=== PATIENT | female | born 1945 | race Caucasian/White ===

== ENCOUNTER 2019-12-24 19:41 | Inpatient (IN) | payer MEDICARE, MEDICAID ==
[~2019-12-24] VITALS: Ht 157.5 cm; Wt 94.5 kg
[2019-12-24] MEDS ORDERED: ONDANSETRON HCL 4MG/2ML INJ IV STA (20:00)
[2019-12-24] MEDS ORDERED: SODIUM CHLORIDE 0.9% 500 ML IV ONE (20:00)
[2019-12-24 20:35] LABS: BASOPHILS % 0.5 % (0.0-2.0); EOSINOPHILS % 2.7 % (0.0-5.0); HEMATOCRIT. 35.7 % (36.0-48.0); HEMOGLOBIN. 11.6 g/dL (12.0-16.0); LYMPHOCYTES % 14.9 % (20.0-50.0); MEAN CORPUSCULAR HEMOGLOBIN 28.8 pg (28.0-32.0); MEAN CORPUSCULAR VOLUME 88.6 fL (81.0-99.0); MEAN PLATELET VOLUME 9.3 fl (7.4-10.4); MONOCYTES % 6.1 % (2.0-8.0); NEUTROPHILS % 75.8 % (40.0-76.0); PLATELET 197 x1000/uL (130-400); RED BLOOD CELL COUNT 4.03 mill/uL (4.2-5.4); RED CELL DISTRIBUTION WIDTH 15.2 % (11.6-14.6)
[2019-12-24 20:39] LABS: CHLORIDE 99 mEq/L (98-107)
[2019-12-24 20:44] LABS: ETHANOL BLOOD < 10 mg/dL
[2019-12-24 21:30] LABS: CLARITY URINE CLEAR (CLEAR); COLOR URINE YELLOW (YELLOW); KETONES URINE NEGATIVE (NEGATIVE); LEUKOCYTE ESTERASE URINE NEGATIVE (NEGATIVE); NITRITE URINE NEGATIVE (NEGATIVE); OCCULT BLOOD URINE NEGATIVE (NEGATIVE); PROTEIN URINE TRACE (NEGATIVE); SPECIFIC GRAVITY URINE 1.017 (1.005-1.030); UROBILINOGEN URINE 0.2 E.U./dL (0.2-1.0)
[2019-12-24 21:40] LABS: *AMPHETAMINES SCREEN URINE NEGATIVE (NEGATIVE); *BARBITURATES SCREEN URINE NEGATIVE (NEGATIVE); *BENZODIAZEPINES SCREEN URINE NEGATIVE (NEGATIVE); *COCAINE SCREEN URINE NEGATIVE (NEGATIVE); METHADONE URINE SCREEN NEGATIVE (NEGATIVE)
[2019-12-24 21:41] LABS: CANNABINOID URINE SCREEN NEGATIVE (NEGATIVE); OPIATES URINE SCREEN NEGATIVE (NEGATIVE); PHENCYCLIDINE URINE SCREEN NEGATIVE (NEGATIVE)
[2019-12-25 04:00] VITALS: BP 130/61
[2019-12-25] MEDS ORDERED: LOSA100T32 PO (04:58)
[2019-12-25] MEDS ORDERED: HYDR-4133 PO (04:58)
[2019-12-25] MEDS ORDERED: AMLO10TA80 PO (04:58)
[2019-12-25] MEDS ORDERED: AZOPT EACHEYE (04:58)
[2019-12-25] MEDS ORDERED: ASPI-1497 PO (04:58)
[2019-12-25] MEDS ORDERED: GLIM4TAB36 PO (04:58)
[2019-12-25] MEDS ORDERED: TIMO5DRO32 EACHEYE (04:58)
[2019-12-25] MEDS ORDERED: SIMV-43 PO (04:58)
[2019-12-25] MEDS ORDERED: SULF1TAB48 MT (04:58)
[2019-12-25] MEDS ORDERED: BRIM15DR8 EACHEYE (04:58)
[2019-12-25 04:59] VITALS: BP 130/61
[2019-12-25] MEDS ORDERED: INSU100I28 SQ (05:20)
[2019-12-25] MEDS ORDERED: INSLIS SUBCUT ×2 (05:20)
[2019-12-25] MEDS ORDERED: DEXTROSE 50% WATER 50ML SYRINGE IV PRN (06:30)
[2019-12-25] MEDS: INSULIN LISPRO 100 UNITS/ML SUBCUT SCH ×4 (06:38→22:06)
[2019-12-25] MEDS: BLOOD SUGAR DIAGNOSTIC STRIP TEST SCH ×4 (06:38→21:59)
[2019-12-25] MEDS: HYDRALAZINE HCL 10MG TABLET PO SCH ×3 (06:43→21:48)
[2019-12-25 08:00] VITALS: BP 127/52
[2019-12-25] MEDS: GLIMEPIRIDE 2MG TABLET PO SCH (08:52)
[2019-12-25] MEDS: SULFAMETHOXAZOLE/TRIMETHOPRIM 800/160MG TABLET PO SCH (08:52)
[2019-12-25] MEDS: ASPIRIN 81MG EC TABLET PO SCH (08:52)
[2019-12-25] MEDS: LOSARTAN POTASSIUM 100 MG TABLET PO SCH (08:53)
[2019-12-25] MEDS: AMLODIPINE 10MG TABLET PO SCH (08:53)
[2019-12-25] MEDS: BRIMONIDINE 0.2% OPHTH DROPS 5ML BOTHEYE SCH ×2 (08:54→17:52)
[2019-12-25] MEDS: DORZOLAMIDE 2% OPHTH 10 ML BOTTLE BOTHEYE SCH ×2 (08:54→17:52)
[2019-12-25] MEDS: TIMOLOL MALEATE 0.5% OPHTH DROPS 5ML EACHEYE SCH ×2 (08:54→17:52)
[2019-12-25] MEDS ORDERED: GLIMEPIRIDE 4 MG PO SCH (09:00)
[2019-12-25] MEDS ORDERED: MEDICATION NOT ON FORMULARY EA (Timolol Maleate 1 DROP) EACHEYE SCH (09:00)
[2019-12-25] MEDS ORDERED: ENOXAPARIN 30MG/0.3ML SYR SUBCUT SCH (09:00)
[2019-12-25] MEDS ORDERED: BRIMONIDINE 0.2% OPHTH DROPS 5ML EACHEYE SCH (09:00)
[2019-12-25] MEDS ORDERED: MEDICATION NOT ON FORMULARY EA (Brinzolamide (Azopt) 1 DROP) EACHEYE SCH (09:00)
[2019-12-25 09:32] LABS: BASOPHILS % 0.4 % (0.0-2.0); EOSINOPHILS % 3.2 % (0.0-5.0); HEMATOCRIT. 36.1 % (36.0-48.0); HEMOGLOBIN. 11.9 g/dL (12.0-16.0); MEAN CORPUSCULAR VOLUME 88.2 fL (81.0-99.0); MEAN PLATELET VOLUME 9.3 fl (7.4-10.4); NEUTROPHILS % 71.4 % (40.0-76.0); PLATELET 205 x1000/uL (130-400); RED CELL DISTRIBUTION WIDTH 14.9 % (11.6-14.6)
[2019-12-25 12:00] VITALS: BP_SYST 113; BP_SYST 120; BP_DIAS 44; BP_DIAS 58
[2019-12-25] MEDS: SODIUM CHLORIDE 0.45% 1,000 ML IV SCH (12:56)
[2019-12-25 16:00] VITALS: BP_SYST 101; BP_SYST 127; BP_DIAS 46; BP_DIAS 52
[2019-12-25 20:00] VITALS: BP_SYST 109; BP_SYST 113; BP_SYST 116; BP_DIAS 47; BP_DIAS 57; BP_DIAS 61
[2019-12-25] MEDS: ATORVASTATIN CALCIUM 20MG TABLET PO SCH (21:48)
[2019-12-26] VITALS: BP 110/37
[2019-12-26] MEDS: SODIUM CHLORIDE 0.45% 1,000 ML IV SCH ×2 (02:40→17:04)
[2019-12-26 04:00] VITALS: BP 113/44
[2019-12-26] MEDS: HYDRALAZINE HCL 10MG TABLET PO SCH ×3 (06:41→21:56)
[2019-12-26] MEDS: BLOOD SUGAR DIAGNOSTIC STRIP TEST SCH ×4 (06:50→21:56)
[2019-12-26] MEDS: INSULIN LISPRO 100 UNITS/ML SUBCUT SCH ×4 (07:08→21:56)
[2019-12-26 07:23] LABS: BASOPHILS % 0.6 % (0.0-2.0); EOSINOPHILS % 6.4 % (0.0-5.0); HEMATOCRIT. 37.4 % (36.0-48.0); HEMOGLOBIN. 12.5 g/dL (12.0-16.0); LYMPHOCYTES % 28.4 % (20.0-50.0); MEAN CORPUSCULAR HEMOGLOBIN 29.7 pg (28.0-32.0); MEAN CORPUSCULAR VOLUME 88.7 fL (81.0-99.0); MEAN PLATELET VOLUME 9.3 fl (7.4-10.4); MONOCYTES % 7.7 % (2.0-8.0); NEUTROPHILS % 56.9 % (40.0-76.0); PLATELET 192 x1000/uL (130-400); RED BLOOD CELL COUNT 4.22 mill/uL (4.2-5.4); RED CELL DISTRIBUTION WIDTH 15.1 % (11.6-14.6)
[2019-12-26 08:00] VITALS: BP 132/57
[2019-12-26] MEDS: LOSARTAN POTASSIUM 100 MG TABLET PO SCH (09:21)
[2019-12-26] MEDS: SULFAMETHOXAZOLE/TRIMETHOPRIM 800/160MG TABLET PO SCH (09:21)
[2019-12-26] MEDS: GLIMEPIRIDE 2MG TABLET PO SCH (09:22)
[2019-12-26] MEDS: ASPIRIN 81MG EC TABLET PO SCH (09:22)
[2019-12-26] MEDS: AMLODIPINE 10MG TABLET PO SCH (09:22)
[2019-12-26] MEDS: BRIMONIDINE 0.2% OPHTH DROPS 5ML BOTHEYE SCH ×2 (09:23→17:02)
[2019-12-26] MEDS: TIMOLOL MALEATE 0.5% OPHTH DROPS 5ML EACHEYE SCH ×2 (09:23→17:02)
[2019-12-26] MEDS: DORZOLAMIDE 2% OPHTH 10 ML BOTTLE BOTHEYE SCH ×2 (09:23→17:02)
[2019-12-26] MEDS: ENOXAPARIN 40MG/0.4ML SYR SUBCUT SCH (09:23)
[2019-12-26 12:08] VITALS: BP_SYST 105; BP_SYST 98; BP_DIAS 48; BP_DIAS 53
[2019-12-26 16:00] VITALS: BP 106/78
[2019-12-26 20:00] VITALS: BP_SYST 103; BP_SYST 125; BP_SYST 128; BP_DIAS 47; BP_DIAS 63; BP_DIAS 64
[2019-12-26] MEDS: ATORVASTATIN CALCIUM 20MG TABLET PO SCH (21:56)
[2019-12-27] VITALS: BP 103/45
[2019-12-27 04:00] VITALS: BP_SYST 109; BP_SYST 111; BP_DIAS 56
[2019-12-27] MEDS: SODIUM CHLORIDE 0.45% 1,000 ML IV SCH ×2 (04:14→18:05)
[2019-12-27] MEDS: HYDRALAZINE HCL 10MG TABLET PO SCH ×2 (05:05→13:11)
[2019-12-27] MEDS: INSULIN LISPRO 100 UNITS/ML SUBCUT SCH ×3 (07:15→17:37)
[2019-12-27 07:31] LABS: BASOPHILS % 0.6 % (0.0-2.0); EOSINOPHILS % 4.8 % (0.0-5.0); HEMOGLOBIN. 11.8 g/dL (12.0-16.0); LYMPHOCYTES % 25.1 % (20.0-50.0); MEAN CORPUSCULAR HEMOGLOBIN 29.7 pg (28.0-32.0); MEAN CORPUSCULAR VOLUME 88.3 fL (81.0-99.0); MEAN PLATELET VOLUME 9.5 fl (7.4-10.4); MONOCYTES % 8.7 % (2.0-8.0); NEUTROPHILS % 60.8 % (40.0-76.0); PLATELET 208 x1000/uL (130-400); RED BLOOD CELL COUNT 3.96 mill/uL (4.2-5.4); RED CELL DISTRIBUTION WIDTH 14.9 % (11.6-14.6)
[2019-12-27] MEDS: BLOOD SUGAR DIAGNOSTIC STRIP TEST SCH ×3 (07:44→17:02)
[2019-12-27 08:11] VITALS: BP_SYST 132; BP_SYST 95; BP_SYST 97; BP_DIAS 62; BP_DIAS 73; BP_DIAS 77
[2019-12-27] MEDS: SULFAMETHOXAZOLE/TRIMETHOPRIM 800/160MG TABLET PO SCH (08:38)
[2019-12-27] MEDS: ENOXAPARIN 40MG/0.4ML SYR SUBCUT SCH (08:38)
[2019-12-27] MEDS: LOSARTAN POTASSIUM 100 MG TABLET PO SCH (08:39)
[2019-12-27] MEDS: ASPIRIN 81MG EC TABLET PO SCH (08:39)
[2019-12-27] MEDS: GLIMEPIRIDE 2MG TABLET PO SCH (08:39)
[2019-12-27] MEDS: BRIMONIDINE 0.2% OPHTH DROPS 5ML BOTHEYE SCH ×2 (08:40→17:37)
[2019-12-27] MEDS: TIMOLOL MALEATE 0.5% OPHTH DROPS 5ML EACHEYE SCH ×2 (08:40→17:37)
[2019-12-27] MEDS: DORZOLAMIDE 2% OPHTH 10 ML BOTTLE BOTHEYE SCH ×2 (08:40→17:37)
[2019-12-27] MEDS: AMLODIPINE 10MG TABLET PO SCH (08:40)
[2019-12-27 12:00] VITALS: BP 119/63
[2019-12-27 16:00] VITALS: BP 117/42
[2019-12-27 17:13] VITALS: BP 117/42
== END 2019-12-27 18:25 | disposition home or self-care (01) | DRG 73 ==
LOC: ER 19:41 → 5WST 23:32 → ENRESERV 12-25 03:30
PROVIDERS: ADMIT Internal Medicine; ATTEND Internal Medicine
DX: G90.8 Other disorders of autonomic nervous system (principal); N17.0 Acute kidney failure with tubular necrosis; E87.1 Hypo-osmolality and hyponatremia; E44.1 Mild protein-calorie malnutrition; I12.9 Hypertensive chronic kidney disease with stage 1 through stage 4 chronic kidney disease, or unspecified chronic kidney disease; E11.22 Type 2 diabetes mellitus with diabetic chronic kidney disease; E11.649 Type 2 diabetes mellitus with hypoglycemia without coma; E66.01 Morbid (severe) obesity due to excess calories; E78.5 Hyperlipidemia, unspecified; N18.9 Chronic kidney disease, unspecified; Z68.37 Body mass index [BMI] 37.0-37.9, adult; Z79.82 Long term (current) use of aspirin; Z79.4 Long term (current) use of insulin; Z79.899 Other long term (current) drug therapy; Z68.38 Body mass index [BMI] 38.0-38.9, adult
CPT/HCPCS: 36415; 70551; 71045; 80048; 80053; 80061; 80305; 80320; 81003; 82962; 83036; 83880; 84145; 84443; 84484; 85025; 93005; 93306; 93880; 97162; 99285; J1650; J1815; J2405; J7040; G0480

== ENCOUNTER 2023-01-02 12:05 | Inpatient (IN) | payer MEDICARE, MEDICAID ==
[~2023-01-02] VITALS: Ht 152.4 cm; Wt 61.9 kg
[~2023-01-02 12:05] MED LIST: AMLO10TA80 PO; ASPI-1497 PO; AZOPT EACHEYE; BRIM15DR8 EACHEYE; GLIM4TAB36 PO; HYDR-4133 PO; INSLIS SUBCUT; INSU100I28 SQ; LOSA100T33 PO; SIMV-43 PO; SULF1TAB48 MT; TIMO5DRO32 EACHEYE
[2023-01-02 12:07] VITALS: O2SAT 99
[2023-01-02] MEDS ORDERED: PIPERACILLIN/TAZ 3.375G PREMIX 50 ML IV ONE (12:15)
[2023-01-02] MEDS ORDERED: VANCOMYCIN 1G PREMIX 200 ML IV ONE (12:15)
[2023-01-02 12:25] LABS: HEMATOCRIT. 38.4 % (36.0-48.0); HEMOGLOBIN. 12.1 g/dL (12.0-16.0); MEAN CORPUSCULAR HEMOGLOBIN 27.8 pg (28.0-32.0); MEAN CORPUSCULAR VOLUME 88.2 fL (81.0-99.0); MEAN PLATELET VOLUME 9.8 fl (7.4-10.4); PLATELET 287 x1000/uL (130-400); RED BLOOD CELL COUNT 4.35 mill/uL (4.2-5.4)
[2023-01-02 12:34] LABS: CHLORIDE 95 mEq/L (98-107)
[2023-01-02 12:37] LABS: INR 1.2
[2023-01-02] MEDS ORDERED: SODIUM CHLORIDE 0.9% 1,000 ML IV ONE (13:15)
[2023-01-02 13:25] LABS: PLATELET ESTIMATE NORMAL
[2023-01-02] MEDS ORDERED: CLONIDINE 0.1MG TABLET PO PRN (17:30)
[2023-01-02] MEDS ORDERED: GUAIFENESIN 200MG/10ML SUGAR FREE UDC PO PRN (17:30)
[2023-01-02] MEDS ORDERED: PIPERACILLIN/TAZ 3.375G PREMIX 50 ML IV SCH (17:30)
[2023-01-02] MEDS ORDERED: ACETAMINOPHEN 325MG TABLET PO PRN ×2 (17:30)
[2023-01-02] MEDS ORDERED: LORAZEPAM 0.5MG TABLET PO PRN (17:30)
[2023-01-02] MEDS ORDERED: IPRATROPIUM/ALBUTEROL 0.5-3(2.5)MG/3ML NEB HHN PRN (17:30)
[2023-01-02] MEDS ORDERED: ONDANSETRON HCL 4MG/2ML INJ IV PRN (17:30)
[2023-01-02] MEDS ORDERED: DEXTROSE 50% WATER 50ML SYRINGE IV PRN (17:45)
[2023-01-02] MEDS: ENOXAPARIN 30MG/0.3ML SYR SUBCUT SCH (18:00)
[2023-01-02 18:26] LABS: T4 FREE 1.01 ng/dL (0.76-1.46)
[2023-01-02] MEDS: INSULIN LISPRO 100 UNITS/ML SUBCUT SCH ×2 (19:17→21:09)
[2023-01-02] MEDS: BLOOD SUGAR DIAGNOSTIC STRIP TEST SCH (20:54)
[2023-01-02 22:00] VITALS: BP 115/51; PULSE 86; RESP 20; TEMP 96.3
[2023-01-03] VITALS: BP 119/68; PULSE 89; RESP 20; TEMP 98.8
[2023-01-03 00:29] LABS: CREATINE KINASE MB FRACTION 13.8 ng/mL (0.5-3.6)
[2023-01-03] MEDS: PIPERACILLIN/TAZOBACTAM 3.375 G in DEXTROSE 5% WATER 50 ML IV SCH ×4 (00:43→21:50)
[2023-01-03] MEDS: FUROSEMIDE 40MG TABLET PO SCH ×5 (00:44→21:48)
[2023-01-03] MEDS ORDERED: FEBU40TA PO (02:27)
[2023-01-03] MEDS ORDERED: APIX2.5T PO (02:27)
[2023-01-03] MEDS ORDERED: LINA5TAB PO (02:27)
[2023-01-03] MEDS ORDERED: NETA2.5D RIGHTEYE (02:27)
[2023-01-03] MEDS ORDERED: POTA10CA43 PO (02:27)
[2023-01-03] MEDS ORDERED: DORZ10DR8 EACHEYE (02:27)
[2023-01-03] MEDS ORDERED: FURO40TA5 PO (02:27)
[2023-01-03] MEDS ORDERED: BIMA2.5D4 EACHEYE (02:27)
[2023-01-03] MEDS ORDERED: MEMA10TA55 PO (02:27)
[2023-01-03] MEDS ORDERED: BRIM15DR2 EACHEYE (02:27)
[2023-01-03] MEDS ORDERED: HYDR10TA34 PO (02:27)
[2023-01-03] MEDS ORDERED: FAMO20TA8 PO (02:27)
[2023-01-03 04:00] VITALS: BP 98/52; PULSE 84; RESP 22; TEMP 98.4
[2023-01-03] MEDS: BLOOD SUGAR DIAGNOSTIC STRIP TEST SCH ×4 (06:22→21:00)
[2023-01-03] MEDS: INSULIN LISPRO 100 UNITS/ML SUBCUT SCH ×4 (06:22→21:00)
[2023-01-03 06:40] LABS: HEMATOCRIT 35.3 % (36.0-48.0); HEMOGLOBIN 11.5 g/dL (12.0-16.0); MEAN CORPUSCULAR HEMOGLOBIN 28.5 pg (28.0-32.0); MEAN CORPUSCULAR VOLUME 87.6 fL (81.0-99.0); PLATELET 262 x1000/uL (130-400); RED BLOOD CELL COUNT 4.03 mill/uL (4.2-5.4); RED CELL DISTRIBUTION WIDTH 17.4 % (11.6-14.6)
[2023-01-03 06:51] LABS: CHLORIDE 98 mEq/L (98-107)
[2023-01-03 07:13] LABS: CREATINE KINASE 26 IU/L (26-192); CREATINE KINASE MB FRACTION 10.5 ng/mL (0.5-3.6); HAPTOGLOBIN 106 mg/dL (30-200); PHOSPHORUS 5.5 mg/dL (2.5-4.9)
[2023-01-03 08:00] VITALS: BP 103/54; PULSE 87; RESP 18; TEMP 98
[2023-01-03] MEDS ORDERED: FAMOTIDINE 20MG/2ML VIAL IV SCH (09:00)
[2023-01-03] MEDS: METOLAZONE 2.5MG TABLET PO SCH ×3 (09:00→15:28)
[2023-01-03] MEDS ORDERED: LIDOCAINE HCL 1% 10 MG/ML 10ML VIAL ONE (11:44)
[2023-01-03] MEDS ORDERED: SODIUM BICARBONATE 4% (2.4MEQ) 5ML VIAL IV ONE (11:44)
[2023-01-03 12:00] VITALS: BP 97/55; PULSE 84; RESP 18; TEMP 97.8
[2023-01-03 15:26] VITALS: BP 117/68; PULSE 90; RESP 18; TEMP 98.1
[2023-01-03] MEDS: ENOXAPARIN 30MG/0.3ML SYR SUBCUT SCH (17:07)
[2023-01-03 20:00] VITALS: BP 89/41; PULSE 92; RESP 18; TEMP 97.9
[2023-01-04] VITALS: BP 84/44; PULSE 84; RESP 18; TEMP 98.4
[2023-01-04 04:00] VITALS: BP 114/67; PULSE 92; RESP 18; TEMP 97.5
[2023-01-04] MEDS ORDERED: DIPHENHYDRAMINE 50MG/ML VIAL IV NR (05:30)
[2023-01-04] MEDS: INSULIN LISPRO 100 UNITS/ML SUBCUT SCH ×3 (06:52→16:58)
[2023-01-04] MEDS: BLOOD SUGAR DIAGNOSTIC STRIP TEST SCH ×3 (06:57→16:40)
[2023-01-04 07:39] LABS: HEMATOCRIT 33.5 % (36.0-48.0); HEMOGLOBIN 10.7 g/dL (12.0-16.0); MEAN CORPUSCULAR HEMOGLOBIN 28.4 pg (28.0-32.0); MEAN CORPUSCULAR VOLUME 88.6 fL (81.0-99.0); RED BLOOD CELL COUNT 3.79 mill/uL (4.2-5.4); RED CELL DISTRIBUTION WIDTH 17.4 % (11.6-14.6)
[2023-01-04 08:00] VITALS: BP 102/49; PULSE 78; RESP 17; TEMP 97.8
[2023-01-04 08:05] LABS: PHOSPHORUS 5.8 mg/dL (2.5-4.9)
[2023-01-04] MEDS: METOLAZONE 2.5MG TABLET PO SCH (08:40)
[2023-01-04] MEDS: PIPERACILLIN/TAZOBACTAM 3.375 G in DEXTROSE 5% WATER 50 ML IV SCH (08:40)
[2023-01-04] MEDS ORDERED: FUROSEMIDE 40MG TABLET PO SCH (09:00)
[2023-01-04 12:00] VITALS: BP 98/40; PULSE 91; RESP 19; TEMP 98.7
[2023-01-04] MEDS ORDERED: VANCOMYCIN 750MG PREMIX 150 ML IV SCH (12:00)
[2023-01-04] MEDS ORDERED: LEVO250T74 MT (15:01)
[2023-01-04 15:59] LABS: CLARITY URINE CLEAR (CLEAR); COLOR URINE YELLOW (YELLOW); KETONES URINE NEGATIVE (NEGATIVE); LEUKOCYTE ESTERASE URINE 2+ (NEGATIVE); NITRITE URINE NEGATIVE (NEGATIVE); OCCULT BLOOD URINE NEGATIVE (NEGATIVE); PH URINE 5.5 (4.5-8.0); PROTEIN URINE NEGATIVE (NEGATIVE); SPECIFIC GRAVITY URINE 1.011 (1.005-1.030); UROBILINOGEN URINE 0.2 E.U./dL (0.2-1.0)
[2023-01-04 16:00] VITALS: BP 101/50; PULSE 71; RESP 19; TEMP 97.6
[2023-01-04 16:08] VITALS: BP 98/40; PULSE 91; TEMP 98.1
[2023-01-04 16:10] LABS: SODIUM URINE RANDOM 42 mEq/L
[2023-01-07 04:07] LABS: MICROALBUMIN RANDOM URINE 21.8 ug/mL (Not Estab.)
== END 2023-01-04 17:18 | disposition home health service (06) | DRG 871 ==
LOC: ER 12:05 → 8WST 14:00 → EDBEDREQ 14:03
PROVIDERS: ADMIT Hospitalist; ATTEND Hospitalist
PROC: 0W9G3ZZ Drainage of Peritoneal Cavity, Percutaneous Approach (ICD-10-PCS; principal; 2023-01-03)
DX: A41.9 Sepsis, unspecified organism (principal); E43 Unspecified severe protein-calorie malnutrition; G93.41 Metabolic encephalopathy; K76.7 Hepatorenal syndrome; I50.33 Acute on chronic diastolic (congestive) heart failure; I13.0 Hypertensive heart and chronic kidney disease with heart failure and stage 1 through stage 4 chronic kidney disease, or unspecified chronic kidney disease; N17.9 Acute kidney failure, unspecified; R18.8 Other ascites; D47.2 Monoclonal gammopathy; D63.1 Anemia in chronic kidney disease; E11.22 Type 2 diabetes mellitus with diabetic chronic kidney disease; F03.90 Unspecified dementia, unspecified severity, without behavioral disturbance, psychotic disturbance, mood disturbance, and anxiety; I48.91 Unspecified atrial fibrillation; N18.30 Chronic kidney disease, stage 3 unspecified; R16.0 Hepatomegaly, not elsewhere classified; Z79.01 Long term (current) use of anticoagulants; Z79.899 Other long term (current) drug therapy; Z68.26 Body mass index [BMI] 26.0-26.9, adult
CPT/HCPCS: 36415; 49083; 71045; 74176; 76705; 80048; 80053; 80061; 80202; 81003; 82043; 82550; 82553; 82570; 82962; 83010; 83036; 83605; 83615; 83735; 83880; 83935; 84100; 84145; 84300; 84439; 84443; 84484; 84550; 84560; 85025; 85027; 88108; 88312; 93005; 93306; 93970; 97162; 99291; A6261; J1200; J1650; J1815; J2543; J3370; J3490; J7030; J7060